=== PATIENT | male | born 1985 | race African-American/Black ===

== ENCOUNTER 2018-01-23 18:38 | Emergency (ER) | payer SELFPAY | END 2018-01-23 21:40 | disposition home or self-care (01) | LOC: FTE 18:38 | DX: S05.01XA Injury of conjunctiva and corneal abrasion without foreign body, right eye, initial encounter (principal); W50.0XXA Accidental hit or strike by another person, initial encounter; Y92.89 Other specified places as the place of occurrence of the external cause | CPT/HCPCS: 99283 ==